=== PATIENT | male | born 1985 | race Two or more races ===

== ENCOUNTER 2019-10-17 15:32 | Emergency (ER) | payer SELFPAY ==
[2019-10-17 15:37] VITALS: BP 160/95; PULSE 108; BMI 27.1
[2019-10-17] MEDS ORDERED: ACETAMINOPHEN 500 MG TABLET (FP) PO ONE (15:43)
[2019-10-17] MEDS ORDERED: DEXAMETHASONE LIQUID 0.5 MG/5 ML PO ONE (16:07)
--- NOTE | 2019-10-17 16:12 | PDOC ---
History of Present Illness - General Chief Complaint: Cold Symptoms Stated Complaint: COVID SYS Time Seen by Provider: 10/17/19 15:36 History Source: Patient Exam Limitations: No Limitations - History of Present Illness Initial Comments: 10/17/19 16:09 HISTORY OF PRESENT ILLNESS: 33-year-old male past medical history of asthma (no history of intubations, 2-3 annual visits for asthma related complaints, hospitalized in March for asthma related concerns) presents emergency department for evaluation of shortness of breath, fever and cough. Patient was seen and evaluated in urgent care center and was referred to the emergency department for continued evaluation of potential COVID-19 and pneumonia. Patient denies any recent sick contacts or travel. No recent travel or sick contacts. PAST MEDICAL HISTORY: See HPI SURGICAL HISTORY: Denies ALLERGIES: No known drug allergies REVIEW OF SYSTEMS General/Constitutional: Denies fever or chills. Denies weakness, weight change. HEENT: Denies change in vision. Denies ear pain or discharge. Denies sore throat. Cardiovascular: Denies chest pain or shortness of breath. Respiratory: See HPI Gastrointestinal: Denies nausea, vomiting, diarrhea or constipation. Denies rectal bleeding. Genitourinary: Denies dysuria, frequency, or change in urination. Musculoskeletal: Denies joint or muscle swelling or pain. Denies neck or back pain. Skin and breasts: Denies rash or easy bruising. Neurologic: Denies headache, vertigo, loss of consciousness, or loss of sensation. Psychiatric: Denies depression or anxiety. Endocrine: Denies increased thirst. Denies abnormal weight change. Hematologic/Lymphatic: Denies anemia, easy bleeding, or history of blood clots. Allergic/Immunologic: Denies hives or skin allergy. Denies latex allergy. PHYSICAL EXAM General Appearance: Well-appearing, appropriately dressed. No apparent distress, no intoxication. HEENT: EOMI, PERRLA, normal ENT inspection, normal voice, TMs normal, pharynx n ormal. No conjunctival pallor. No photophobia, scleral icterus. Respiratory/Chest: Lungs CTAB. No shortness of breath, chest tenderness, respiratory distress, accessory muscle use. Scattered wheezes present in all lung jefferson. Rhonchorous cough noted throughout exam. No crackles present on auscultation. Speaking in full sentences without difficulty. Cardiovascular: RRR. S1, S2. No JVD, murmur, bradycardia, tachycardia. Vascular Pulses: Dorsalis-Pedis (R): 2+, Dorsalis-Pedis (L): 2+ Integumentary: Appropriate color, dry, warm. No cyanosis, erythema, jaundice or rash Past History - Medical History Allergies/Adverse Reactions: Allergies Allergy/AdvReac Type Severity Reaction Status Date / Time No Known Allergies Allergy Verified 10/17/19 15:37 Home Medications: Ambulatory Orders Albuterol Sulfate [Albuterol Sulfate Hfa] 2 puff IH [id number] PRN #1 hfa.aer.ad 10/17/19 Azithromycin [Zithromax 250mg Tablets -] 250 mg PO UTDICT #6 tab 10/17/19 Asthma: Yes COPD: No - Psycho-Social/Smoking History Smoking History: Never smoked - Substance Abuse Hx (Audit-C & DAST Scrn) How often the patient has a drink containing alcohol: Never Score: In Men: 4 or > Positive; In Women: 3 or > Positive: 0 Screen Result (Pos requires Nsg. Audit-10AR): Negative *Physical Exam - Vital Signs Last Vital Signs Temp Pulse Resp BP Pulse Ox 102.4 F H 108 H 24 H 160/95 94 L 10/17/19 15:33 10/17/19 15:33 10/17/19 15:33 10/17/19 15:33 10/17/19 15:33 ED Treatment Course - RADIOLOGY Radiology Studies Ordered: Category Date Time Status CHEST PA & LAT [RAD] Stat Radiology 10/17/19 15:37 Taken - Medications Given in the ED: ED Medications Discontinued Medications Generic Name Dose Route Start Last Admin Trade Name Freq PRN Reason Stop Dose Admin Acetaminophen 975 mg 10/17/19 15:43 10/17/19 15:46 Tylenol - PO 10/17/19 15:44 975 mg ONCE ONE Administration Medical Decision Making - Medical Decision Making 10/17/19 16:11 A/P: 33-year-old male with asthma exacerbation likely complicated by upper respiratory infection SPO2 94% after ambulation Scattered wheezes present to all jefferson No crackles or rhonchi present Speaking in full sentences Chest x-ray as read by me: Angle sharp. Cardiac silhouette is within normal limits. No focal infiltrates or consolidations are present. COVID testing Tylenol 975 mg orally now Decadron 10 mg orally now DuoNeb's x3 Reassess 10/17/19 16:12 10/17/19 17:07 Patient ambulatory on the tenths to the triage area with oxygen saturation greater than 96% throughout. Repeat temperature is 98.4 degrees. Patient is mildly tachycardic at 112 but just finished taking albuterol nebulizer tr eatments and likely due to medication reaction. Patient's lungs are now clear and patient reports it is easier to breathe at this time. I will discharge the patient home to follow-up with his primary doctor and strict return precautions have been provided. I discussed the physical exam findings, ancillary test results and final diagnoses with the patient. I answered all of the patient's questions. The patient was satisfied with the care received and felt comfortable with the discharge plan and treatment plan. The patient will call their primary care physician within 24 hours to arrange follow-up and will return to the Emergency Department with any new, persistent or worsening symptoms. Portions of this note have been documented using voice recognition software. As a result, errors may occur in the food counter worker process. Effort has been made to correct all grammatical and food counter worker error, but some may have been missed which may produce sporadic inaccurate food counter worker or nonsensical phrases. Discharge - Discharge Information Problems reviewed: Yes Clinical Impression/Diagnosis: URI (upper respiratory infection) Qualifiers: URI type: unspecified viral URI Qualified Code(s): J06.9 - Acute upper respiratory infection, unspecified Asthma exacerbation Qualifiers: Asthma severity: mild Asthma persistence: intermittent Qualified Code(s): J45.21 - Mild intermittent asthma with (acute) exacerbation Condition: Fair Disposition: HOME - Admission No - Additional Discharge Information Prescriptions: Albuterol Sulfate [Albuterol Sulfate Hfa] 2 puff IH [id number] PRN #1 hfa.aer.ad PRN Reason: Short Of Breath/Wheezing Azithromycin [Zithromax 250mg Tablets -] 250 mg PO UTDICT #6 tab - Follow up/Referral - Patient Discharge Instructions Patient Printed Discharge Instructions: [facility]-Coronavirus Instructions, R- [facility] COVID-19 Isolation Protocol Additional Instructions: Rest, drink lots of fluids: Teas, water, soups, Pedialyte Saltwater gargles Steamy showers/seem to face break up mucus Avoid contact with others until fevers and cough resolved Lots of handwashing and good hygiene Continue [id number] medications for symptomatic relief Tylenol or Motrin for fever and pain Followup with private physician in one to 2 days as needed Return to emergency department for worsened symptoms, fevers, dehydration bart Garcia muchos lquidos: Ts, agua, sopas, Pedialyte Grgaras de agua salada Duchas de vapor / parece que se enfrentan a disgregar la mucosidad Evite el contacto con otras personas hasta que la fiebre y la tos desaparezcan. Mucho lavado de lane y buena higiene. Continuar con los medicamentos de venta kim para aliviar los sntomas Tylenol o Motrin para la fiebre y el dolor Seguimiento con un mdico privado en brook o dos chambers segn sea necesario Regrese al departamento de emergencias por empeoramiento de los sntomas, fiebre, deshidratacin Print Language: [place] - Post Discharge Activity Work/Back to School Note: Back to Work
[2019-10-17] MEDS ORDERED: ALBUTEROL SO4 2.5/IPRATROPIUM 0.5 INH SOL 3 ML VIAL.NEB. NEB ONE (16:13)
[2019-10-17] MEDS ORDERED: DEXAMETHASONE SOD PHOSPHATE 10 MG/1 ML VIAL ONE (16:14)
[2019-10-17] MEDS ORDERED: ACETAMINOPHEN 325 MG TABLET (FP) ONE (16:14)
[2019-10-17] MEDS: ALBUTEROL SO4 2.5/IPRATROPIUM 0.5 INH SOL 3 ML VIAL.NEB. NEB SCH ×4 (16:15→17:05)
[2019-10-17 17:08] VITALS: TEMP 98.4
== END 2019-10-17 17:21 | disposition home or self-care (01) ==
LOC: JER 15:32
PROC: 3E0F7GC Introduction of Other Therapeutic Substance into Respiratory Tract, Via Natural or Artificial Opening (ICD-10-PCS; principal; 2019-10-17)
DX: J06.9 Acute upper respiratory infection, unspecified (principal); J45.21 Mild intermittent asthma with (acute) exacerbation
CPT/HCPCS: 71046-TC-FY; 99283-25; U0003